=== PATIENT | female | born 1990 | race Caucasian/White ===

== ENCOUNTER 2017-11-23 19:08 | Emergency (ER) | payer SELFPAY ==
[~2017-11-23] VITALS: Ht 160 cm; Wt 88.0 kg
[2017-11-23] MEDS ORDERED: TORADOL PO (20:10)
[2017-11-23 20:31] VITALS: BP 142/96
== END 2017-11-23 21:05 | disposition home or self-care (01) | DRG 605 ==
LOC: ED 19:08
DX: S60.032A Contusion of left middle finger without damage to nail, initial encounter (principal); S60.042A Contusion of left ring finger without damage to nail, initial encounter; F17.210 Nicotine dependence, cigarettes, uncomplicated; W23.0XXA Caught, crushed, jammed, or pinched between moving objects, initial encounter; Y92.009 Unspecified place in unspecified non-institutional (private) residence as the place of occurrence of the external cause

== ENCOUNTER 2018-08-26 01:08 | Emergency (ER) | payer SELFPAY ==
[~2018-08-26] VITALS: Ht 160 cm; Wt 78.0 kg
[~2018-08-26 01:08] MED LIST: TORADOL PO
[2018-08-26] MEDS ORDERED: OXYCODONE HCL5 MG PO (01:28)
[2018-08-26 02:00] VITALS: BP 125/79
== END 2018-08-26 01:45 | disposition left against medical advice (07) | DRG 392 ==
LOC: ED 01:08
DX: R10.2 Pelvic and perineal pain (principal); Z91.19 Patient's noncompliance with other medical treatment and regimen